=== PATIENT | female | born 1955 | race Caucasian/White ===

== ENCOUNTER 2017-03-04 13:06 | Inpatient (IN) | payer OTHER ==
[~2017-03-04 13:06] MED LIST: ASA-CA CARB-MA325 MG PO; CYPROHEPTADINE H4 M1 PO; ESTRADIOL2 MG PO; FOLIC ACID1 M1 PO; LASIX20 M1 PO; LIPITOR40 M1 PO; LIPITOR40 MG PO; LOPRESSOR50 MG PO; METHOTREXATE2.5 M1 PO; ORACEA40 MG PO; PLAQUENIL200 M1 PO; PREDNISONE1 M1 PO; PROTONIX40 M1 PO; REQUIP0.5 MG PO; ROCALTROL0.25 MC1 PO; SYNTHROID175 MC1 PO; SYNTHROID25 MCG PO; TOPROL XL50 M1 PO; VENLAFAXINE PO; VITAMIN B122500 MCG PO; VITAMIN D5000 UNI1 PO; ZESTORETIC1 TAB PO; ZESTRIL20 M3 PO; [UNRECOGNIZED DRUG - OTHER] PO
[2017-03-04] MEDS ORDERED: ZESTRIL40 M2 PO (13:19)
[2017-03-04] MEDS ORDERED: PROMETH-CODEIN 65 ML PO (13:19)
[2017-03-04] MEDS ORDERED: EFFEXOR XR75 M1 PO (13:20)
[2017-03-04] MEDS ORDERED: ROCALTROL0.25 MC1 PO (13:21)
[2017-03-04] MEDS ORDERED: SYNTHROID150 MC1 PO (13:21)
[2017-03-04] MEDS ORDERED: LIPITOR40 M1 PO (13:21)
[2017-03-04] MEDS ORDERED: LASIX20 M1 PO (13:21)
[2017-03-04] MEDS ORDERED: IBUPROFEN200 M2 PO (13:22)
[2017-03-04] MEDS ORDERED: TOPROL XL50 M1 PO (13:22)
[2017-03-04] MEDS ORDERED: VITAMIN D35000 UNI3 PO (13:23)
[2017-03-04] MEDS ORDERED: B-12500 MC1 PO (13:23)
[2017-03-04 13:34] LABS: BASO % 0.5 % (0-2); EOS % 0.5 % (0-7); HCT-HEMATOCRIT 40.8 % (34.0-49.0); HGB-HEMOGLOBIN 13.6 gm/dl (12.0-15.5); LYMPH % 25.4 % (20-45); LYMPH ABSOLUTE COUNT 0.5 tho/cmm (0.8-4.5); MCH (MEAN CORPUSCULAR HGB) 29.3 pg (28.0-32.0); MCHC MEAN CORPUSCULAR HGB CONC 33.3 % (32.0-36.0); MCV (MEAN CELL VOLUME) 87.9 fl (82.0-96.0); MEAN PLATELET VOLUME 10.3 cmc (9.4-12.4); MONO % 24.9 % (0-12); MONOCYTE ABSOLUTE COUNT 0.5 tho/cmm (0.0-1.2); NEUTROPHIL ABSOLUTE COUNT 0.9 tho/cmm (1.6-8.0); NEUTROPHIL-AUTOMATED 0.9 tho/cmm (1.6-8.0); NEUTROPHILS % 48.7 % (40-80); PLATELET COUNT 165 tho/cmm (150-450); RED BLOOD COUNT 4.64 mil/cmm (4.00-5.20); RED CELL DISTRIBUTION WIDTH 13.9 % (12.4-16.4)
[2017-03-04 13:38] LABS: WHITE BLOOD COUNT 1.9 tho/cmm (4.0-10.0)
[2017-03-04 13:56] LABS: ALB/GLOB RATIO 0.9 (0.8-2.0); ALBUMIN 3.5 g/dl (3.5-5.0); ALKALINE PHOSPHATASE 120 U/L (33-138); ALT/SGPT 48 U/L (12-78); ANION GAP 12 mmol/L (0-20); AST/SGOT 56 U/L (10-40); BILIRUBIN,TOTAL 0.6 mg/dl (0-1.5); BLOOD UREA NITROGEN 13 mg/dl (6-24); CALCIUM 8.9 mg/dl (8.5-10.5); CARBON DIOXIDE-VENOUS 25 mmol/L (22-32); CHLORIDE 106 mmol/l (96-110); CREATININE 1.43 mg/dl (0.50-1.10); GLUCOSE 97 mg/dL (70-110); POTASSIUM 4.2 mmol/L (3.7-5.1); SODIUM 139 mmol/L (135-145); eGFR VALUE FOR BLACK 45 mL/Min
[2017-03-04 14:01] LABS: PROCALCITONIN 0.07 ng/ml (0.05-0.09)
[2017-03-04 14:24] LABS: URINE BILIRUBIN NEGATIVE (NEG); URINE BLOOD NEGATIVE (NEG); URINE GLUCOSE (UA) NEGATIVE (NEG); URINE KETONE NEGATIVE (NEG); URINE LEUKOCYTE ESTERASE NEGATIVE (NEG); URINE NITRITE NEGATIVE (NEG); URINE PROTEIN NEGATIVE (NEG); URINE SPECIFIC GRAVITY 1.015 (1.003-1.030)
[2017-03-04 14:25] LABS: URINE APPEARANCE CLEAR; URINE COLOR YELLOW
[2017-03-04 18:18] LABS: PROTHROMBIN TIME 11.6 SECONDS (9.0-13.6)
[2017-03-05 04:35] LABS: HCT-HEMATOCRIT 35.9 % (34.0-49.0); HGB-HEMOGLOBIN 11.8 gm/dl (12.0-15.5); LYMPH ABSOLUTE COUNT 0.8 tho/cmm (0.8-4.5); MCH (MEAN CORPUSCULAR HGB) 28.6 pg (28.0-32.0); MCHC MEAN CORPUSCULAR HGB CONC 32.9 % (32.0-36.0); MCV (MEAN CELL VOLUME) 87.1 fl (82.0-96.0); MEAN PLATELET VOLUME 10.5 cmc (9.4-12.4); MONO % 21.8 % (0-12); MONOCYTE ABSOLUTE COUNT 0.4 tho/cmm (0.0-1.2); NEUTROPHIL ABSOLUTE COUNT 0.7 tho/cmm (1.6-8.0); NEUTROPHIL-AUTOMATED 0.7 tho/cmm (1.6-8.0); NEUTROPHILS % 36.2 % (40-80); PLATELET COUNT 143 tho/cmm (150-450); RED BLOOD COUNT 4.12 mil/cmm (4.00-5.20); RED CELL DISTRIBUTION WIDTH 14.1 % (12.4-16.4)
[2017-03-05 04:37] LABS: WHITE BLOOD COUNT 1.9 tho/cmm (4.0-10.0)
[2017-03-05 04:44] LABS: ALBUMIN 2.8 g/dl (3.5-5.0); ANION GAP 14 mmol/L (0-20); BLOOD UREA NITROGEN 15 mg/dl (6-24); CALCIUM 7.4 mg/dl (8.5-10.5); CARBON DIOXIDE-VENOUS 21 mmol/L (22-32); CHLORIDE 108 mmol/l (96-110); CREATININE 1.42 mg/dl (0.50-1.10); GLUCOSE 95 mg/dL (70-110); PHOSPHOROUS 2.4 mg/dl (2.5-4.9); POTASSIUM 3.6 mmol/L (3.7-5.1); SODIUM 139 mmol/L (135-145); eGFR VALUE FOR BLACK 46 mL/Min
[2017-03-06 04:29] LABS: ANION GAP 13 mmol/L (0-20); BLOOD UREA NITROGEN 11 mg/dl (6-24); CALCIUM 8.1 mg/dl (8.5-10.5); CARBON DIOXIDE-VENOUS 23 mmol/L (22-32); CHLORIDE 112 mmol/l (96-110); CREATININE 1.25 mg/dl (0.50-1.10); GLUCOSE 87 mg/dL (70-110); PHOSPHOROUS 2.7 mg/dl (2.5-4.9); POTASSIUM 3.5 mmol/L (3.7-5.1); SODIUM 144 mmol/L (135-145); eGFR VALUE FOR BLACK 53 mL/Min
[2017-03-06] MEDS ORDERED: LOPERAMIDE2 M2 PO (09:51)
[2017-03-06 12:30] LABS: BASO % 0.9 % (0-2); EOS % 1.8 % (0-7); HCT-HEMATOCRIT 38.7 % (34.0-49.0); LYMPH % 68.7 % (20-45); LYMPH ABSOLUTE COUNT 1.5 tho/cmm (0.8-4.5); MCH (MEAN CORPUSCULAR HGB) 29.4 pg (28.0-32.0); MCHC MEAN CORPUSCULAR HGB CONC 33.6 % (32.0-36.0); MCV (MEAN CELL VOLUME) 87.6 fl (82.0-96.0); MEAN PLATELET VOLUME 10.7 cmc (9.4-12.4); MONO % 15.2 % (0-12); MONOCYTE ABSOLUTE COUNT 0.3 tho/cmm (0.0-1.2); NEUTROPHILS % 13.4 % (40-80); PLATELET COUNT 145 tho/cmm (150-450); RED BLOOD COUNT 4.42 mil/cmm (4.00-5.20); RED CELL DISTRIBUTION WIDTH 14.1 % (12.4-16.4); WHITE BLOOD COUNT 2.2 tho/cmm (4.0-10.0)
[2017-03-06 12:33] LABS: NEUTROPHIL ABSOLUTE COUNT 0.3 tho/cmm (1.6-8.0); NEUTROPHIL-AUTOMATED 0.3 tho/cmm (1.6-8.0)
[2017-03-07 05:49] LABS: BASO % 1.5 % (0-2); HCT-HEMATOCRIT 41.4 % (34.0-49.0); HGB-HEMOGLOBIN 13.8 gm/dl (12.0-15.5); LYMPH % 74.8 % (20-45); LYMPH ABSOLUTE COUNT 1.5 tho/cmm (0.8-4.5); MCH (MEAN CORPUSCULAR HGB) 28.9 pg (28.0-32.0); MCHC MEAN CORPUSCULAR HGB CONC 33.3 % (32.0-36.0); MCV (MEAN CELL VOLUME) 86.6 fl (82.0-96.0); MEAN PLATELET VOLUME 10.5 cmc (9.4-12.4); MONO % 10.9 % (0-12); MONOCYTE ABSOLUTE COUNT 0.2 tho/cmm (0.0-1.2); NEUTROPHILS % 11.8 % (40-80); PLATELET COUNT 154 tho/cmm (150-450); RED BLOOD COUNT 4.78 mil/cmm (4.00-5.20); RED CELL DISTRIBUTION WIDTH 13.9 % (12.4-16.4)
[2017-03-07 05:52] LABS: NEUTROPHIL ABSOLUTE COUNT 0.2 tho/cmm (1.6-8.0)
[2017-03-07 05:53] LABS: NEUTROPHIL-AUTOMATED 0.2 tho/cmm (1.6-8.0)
[2017-03-07 06:12] LABS: ALBUMIN 3.3 g/dl (3.5-5.0); ANION GAP 14 mmol/L (0-20); BLOOD UREA NITROGEN 9 mg/dl (6-24); CALCIUM 8.8 mg/dl (8.5-10.5); CARBON DIOXIDE-VENOUS 25 mmol/L (22-32); CHLORIDE 109 mmol/l (96-110); CREATININE 1.08 mg/dl (0.50-1.10); GLUCOSE 81 mg/dL (70-110); PHOSPHOROUS 2.9 mg/dl (2.5-4.9); POTASSIUM 3.8 mmol/L (3.7-5.1); SODIUM 144 mmol/L (135-145); eGFR VALUE FOR BLACK 64 mL/Min
[2017-03-07] MEDS ORDERED: PROMETH-CODEIN 65 ML PO (09:52)
== END 2017-03-07 14:18 | DRG 872 ==
LOC: EDMED 13:06 → EMR2 16:08 → 5WE 17:25
PROVIDERS: Emergency Medicine; Nurse Practitioner Adult Health; ADMIT Internal Medicine
DX: A41.9 Sepsis, unspecified organism (principal); D70.9 Neutropenia, unspecified; N17.9 Acute kidney failure, unspecified; N18.3 Chronic kidney disease, stage 3 (moderate); K92.1 Melena; J09.X2 Influenza due to identified novel influenza A virus with other respiratory manifestations; F41.9 Anxiety disorder, unspecified; E78.5 Hyperlipidemia, unspecified; I12.9 Hypertensive chronic kidney disease with stage 1 through stage 4 chronic kidney disease, or unspecified chronic kidney disease; R19.7 Diarrhea, unspecified; Z88.8 Allergy status to other drugs, medicaments and biological substances; E66.09 Other obesity due to excess calories; Z68.35 Body mass index [BMI] 35.0-35.9, adult; E87.6 Hypokalemia
CPT/HCPCS: G8978-GP-CH; G8978-GP-CI; G8979-GP-CH; G8979-GP-CI; J0456; J0696; J1956; J2543; J3370; J7030; J7050; P9612